=== PATIENT | female | born 1945 | race Hispanic/Latino ===

== ENCOUNTER 2016-09-09 22:20 | Inpatient (IN) | payer MEDICARE, OTHER ==
[2016-09-09 22:30] VITALS: BMI 27.4
[2016-09-09] MEDS ORDERED: Sodium Chloride 0.9% 1,000 ML IV STA (22:48)
[2016-09-09 23:14] LABS: ADD MANUAL DIFF? NO
[2016-09-09 23:21] LABS: BASO # 0.02 K/mm3 (0.0-2.0); BASO % 0.1 % (0.0-3.0); EOS % 0.2 % (1.5-5.0); GRAN # 13.25 (1.4-6.5); GRAN % 81.5 % (50.0-68.0); HEMATOCRIT 34.2 % (36.0-48.0); LYMPH # 1.6 (1.2-3.4); LYMPH % 9.5 % (22.0-35.0); MEAN CELL VOLUME 98.8 fL (80.0-105.0); MEAN CORPUSCULAR HEMOGLOBIN 31.8 pg (25.0-35.0); MEAN CORPUSCULAR HGB CONC 32.2 g/dl (31.0-37.0); MEAN PLATELET VOLUME 9.4 fl (7.0-11.0); MONO # 1.4 (0.1-0.6); MONO % 8.7 % (1.0-6.0); PLATELET COUNT 447 10^3/uL (120.0-450.0); RED CELL DISTRIBUTION WIDTH 15.7 % (11.5-14.5); WHITE BLOOD COUNT 16.3 10^3/ul (4.5-11.0)
[2016-09-09 23:30] LABS: ALB/GLOB RATIO 0.7 (1.1-1.8); ALKALINE PHOSPHATASE 159 U/L (38-133); ALT/SGPT 11 U/L (7-56); AST/SGOT 33 U/L (15-39); BILIRUBIN,TOTAL 0.8 mg/dL (0.2-1.3); BLOOD UREA NITROGEN 17 mg/dL (7-21); CALCIUM 9.6 mg/dL (8.4-10.5); CARBON DIOXIDE 35 mmol/L (21-33); CHLORIDE 88 mmol/L (98-107); GFR AFRICAN-AMERICAN > 60; GLUCOSE,RANDOM 290 mg/dL (70-110); INR 1.12 (0.93-1.08); LIPASE 112 U/L (23-300); PARTIAL THROMBOPLASTIN TIME 28.7 Seconds (23.7-30.8); POTASSIUM 4.1 mmol/L (3.6-5.0); SODIUM 132 mmol/L (132-148); TOTAL PROTEIN 8.3 g/dL (5.8-8.3)
[2016-09-10] MEDS ORDERED: Piperacill/Tazo 4.5gm in NS 100 ML IVPB STA (00:33)
--- NOTE | 2016-09-10 00:37 | ED PDOC ---
Arrival/HPI - General Chief Complaint: GI Problem Time Seen by Provider: 09/09/16 22:33 - History of Present Illness Narrative History of Present Illness (Text): 09/10/16 00:34 60-year-old female with a history of pancreatitis, presents the emergency department with one and a half weeks of constipation. States passing very little stool and gas, but has not had a normal bowel movement. Patient states that she chronically takes opiates for her pain. Patient states that she has taken magnesium citrate with no symptom resolution. Now presents with abdominal distention, and nausea. Denies fevers or chills, states she had some vomiting as well. No other complaints. Past Medical History - Provider Review Nursing Documentation Reviewed: Yes - Infectious Disease Hx of Infectious Diseases: None - Tetanus Immunization Tetanus Immunization: Unknown - Cardiac Hx Cardiac Disorders: No - Pulmonary Hx Respiratory Disorders: Yes Hx Chronic Obstructive Pulmonary Disease (COPD): Yes Hx Pulmonary Embolism: Yes - Neurological Hx Neurological Disorder: No - HEENT Hx Cataracts: Yes (2012) - Renal Hx Renal Disorder: No - Endocrine/Metabolic Hx Diabetes Mellitus Type 2: Yes - Hematological/Oncological Hx Cancer: Yes (Pancreatic CA) - Integumentary Hx Dermatological Disorder: No - Musculoskeletal/Rheumatological Hx Musculoskeletal Disorders: No Hx Falls: No - Gastrointestinal Hx Constipation: Yes - Genitourinary/Gynecological Hx Genitourinary Disorders: No - Psychiatric Hx Psychophysiologic Disorder: Yes Hx Anxiety: Yes Hx Substance Use: No - Surgical History Hx Cataract Extraction: Yes (2 YRS AGO) - Anesthesia Hx Anesthesia: Yes Hx Anesthesia Reactions: No Hx Malignant Hyperthermia: No - Suicidal Assessment Feels Threatened In Home Enviroment: No Family/Social History Family/Social History: Unknown Family HX Smoking Status: Heavy Smoker > 10 Cigarettes Daily Hx Alcohol Use: No Hx Substance Use: No Allergies/Home Meds Allergies/Adverse Reactions: Allergies No Known Allergies Allergy (Verified 06/04/16 16:50) Home Medications: Home Meds Medication Instructions Recorded Confirmed Metformin HCl 1,000 tab PO BID 05/26/15 06/05/16 Physical Exam - Physical Exam Narrative Physical Exam (Text): - Review of Systems Constitutional: Normal. absent: Fatigue, Weight Change, Fevers Eyes: Normal ENT: denies sore throat, denies tristhmus Respiratory: Normal. absent: SOB, Cough, Sputum Cardiovascular: absent: Chest Pain, Palpitations, Syncope Gastrointestinal: Nausea, vomiting, constipation. No diarrhea. Genitourinary: Normal. absent: Dysuria, Frequency, Hematuria, vaginal bleeding Musculoskeletal: Normal. absent: Arthralgias, Back Pain, Neck Pain Skin: no rashes, no erythema Neurological: absent: Focal Weakness Endocrine: Normal Hemo/Lymphatic: Normal Psychiatric: No suicidal or homicidal ideations Physical exam Patient appears age appropriate in no distress, speaking full sentences without difficulty - Systems Exam Head: Present: Atraumatic, Normocephalic Pupils: Present: PERRL Extroacular Muscles: Present: EOMI Conjunctiva: Present: Normal Mouth: Present: Moist Mucous Membranes Neck: Present: Normal Range of Motion. No: MIDLINE TENDERNESS, Paraspinal Tenderness Respiratory/Chest: Present: Clear to Auscultation, Good Air Exchange. No: Respiratory Distress, Accessory Muscle Use, Tachypneic Cardiovascular: Present: Regular Rate and Rhythm, Normal S1, S2, Peripheal Pulses Present. No: Murmurs Abdomen: Present: Normal Bowel Sounds. No: Tenderness, Distention, Peritoneal Signs, Rebound, Guarding Back: Present: Normal Inspection. No: Midline Tenderness, Paraspinal Tenderness Upper Extremity: Present: Normal Inspection. No: Cyanosis, Edema Lower Extremity: Present: Normal Inspection. No: Edema Neurological: Present: GCS=15, Speech Normal, cranial nerves II through XII fully intact with no cerebellar abnormality, neurosensory fully intact. No focal neurological deficits. Skin: Present: Warm, Dry, Normal Color. No: Rashes Lymphatic: Present: OX3, NI, NC Psychiatric: Present: Alert, Oriented x 3, Normal Insight, Normal Concentration Vital Signs Reviewed: Yes Vital Signs Temp Pulse Resp BP Pulse Ox 09/10/16 00:18 98 H 21 128/80 99 09/09/16 23:09 98.5 F 108 H 18 124/78 96 Temperature: Afebrile Blood Pressure: Normal Pulse: Tachycardic Respiratory Rate: Normal Appearance: Positive for: Non-Toxic, Comfortable Pain Distress: None Mental Status: Positive for: Alert and Oriented X 3 Medical Decision Making ED Course and Treatment: 09/10/16 00:37 70-year-old female on opiates for chronic pain, history of pancreatic cancer, presents with constipation. No acute findings on physical examination Patient has leukocytosis and tachycardia, blood cultures and antibiotics also ordered CAT scan, labs pending. Differential diagnosis includes but not limited to: Constipation versus obstipation versus colitis versus ileus 09/10/16 01:19 CT abdomen pelvis as read by [facility] IMPRESSION: Partially imaged left thorax loculated empyema with an air-fluid level and concern for adjacent lung abscess as above. Redemonstration of innumerable pulmonary nodules which are favored to be larger than approximately 3 months ago and in keeping with metastatic disease as the most likely cause. Redemonstration of dilatation of the main pancreatic duct and an apparent pancreatic head mass. Redemonstration of pneumobilia. The large intestine has partially liquid content which could reflect a diarrheal process, constipation could be considered as a contributing factor to discomfort. The absence of intravenous contrast greatly limits evaluation of the parenchymal organs. The absence of oral contrast limits evaluation of the gastrointestinal tract. 09/10/16 01:[address] Gamboa, asked to call Dr. Katherine Murphy, agrees with admission to his service pt and family aware of and agree with plan pt in no distress at this time, tolerating PO without difficulty, hemodynamically stable 09/10/16 01:37 family asked to admin 80mg lovenox to pt at 8am order placed - Lab Interpretations Lab Results: 09/09/16 23:13 09/09/16 23:13 Lab Results 09/09/16 23:13: WBC 16.3 H D, RBC 3.46 L, Hgb 11.0 L, Hct 34.2 L, MCV 98.8, MCH 31.8, MCHC 32.2, RDW 15.7 H, Plt Count 447, MPV 9.4, Gran % 81.5 H, Lymph % ( Auto) 9.5 L, [place] % (Auto) 8.7 H, Eos % (Auto) 0.2 L, Baso % (Auto) 0.1, Gran # 13.25 H, Lymph # 1.6, [place] # 1.4 H, Eos # 0.0, Baso # 0.02, PT 12.1 H, INR 1.12 H, APTT 28.7, Sodium 132, Potassium 4.1, Chloride 88 L, Carbon Dioxide 35 H, Anion Gap 13, BUN 17, Creatinine 0.5, Est GFR ( Amer) > 60, Est GFR (Non- Af Amer) > 60, Random Glucose 290 H, Calcium 9.6, Total Bilirubin 0.8, AST 33, ALT 11, Alkaline Phosphatase 159 H, Total Protein 8.3, Albumin 3.5, Globulin 4.7 , Albumin/Globulin Ratio 0.7 L, Lipase 112 - RAD Interpretation Narrative RAD Interpretations (Text): EXAM: CT Abdomen and Pelvis Without Intravenous Contrast. FINDINGS: Lower thorax: History -There is a comparison to the partially included abdomen on CT of the chest performed June 10, 2016. There is additional history provided on ultrasound dated 2014 of pancreatic adenocarcinoma. Previous CT of the chest and abdomen June 10, 2016 noted innumerable bilateral cavitary pulmonary nodules, pneumobilia, suspicion for mass at the pancreatic head. There is a loculated empyema with an air-fluid level in the left lower thorax, this is not completely imaged on this study. The included portion is approximately 4 cm in anteroposterior dimension, approximately 8.4 cm transversely, greater than 9 cm cephalocaudal, noting that this is favored to be loculated as suggested series 2 image 19. Not possible to exclude a small abscess in the adjacent lung. In addition, there is again note of the innumerable lung nodules in the included portions of the lung bases, these are favored to be larger, for example at the right lung base series 2 image 37 a 19.5 mm nodule measured 16.5 mm in May 2016. There is not any definite nodule which has resolved completely or is smaller, and the findings again are noted to be most likely on the basis of metastatic disease rather than infection. Distended stomach. Air in the esophagus in keeping with reflux. Liver: Pneumobilia, as previously described. Gallbladder and bile ducts: Pneumobilia, as previously described. Cholecystectomy. Pancreas: Marked dilatation of the main pancreatic duct, with a heterogeneous soft tissue attenuation finding in the pancreatic head poorly from the adjacent duodenum and difficult to measure on this noncontrast CT. Spleen: Unremarkable. No splenomegaly. Adrenals: Redemonstration of thickening of the left adrenal gland. Kidneys and ureters: No hydronephrosis. No definite ureteral stones are seen noting that punctate stones or noncalcified stones may not be well seen on CT. Stomach and bowel: Increased fecal content in the colon, correlate for constipation as a contributing factor for symptoms. Possible fluid content in the proximal colon. No findings to suggest acute small bowel obstruction. Appendix: No findings to suggest acute appendicitis. PELVIS: Bladder: Bladder is partly collapsed limiting evaluation. No stones. Reproductive: Unremarkable as visualized. ABDOMEN and PELVIS: Intraperitoneal space: The abdomen shows no free air. No significant fluid collection. Bones/joints: Bony structures degenerative changes of the hips, degenerative spine changes, no acute fractures. Please note limited sensitivity for bony metastatic disease. No dislocation. Soft tissues: Unremarkable. Vasculature: Atherosclerotic calcification. Incidentally noted retroaortic left renal vein. No abdominal aortic aneurysm. Lymph nodes: Lymph nodes. Prominent retrocrural nodes series 2 image 48, multiple peripancreatic nodes which do not definitely meet size criteria for pathologic enlargement. Prominent aortocaval nodes IMPRESSION: Partially imaged left thorax loculated empyema with an air-fluid level and concern for adjacent lung abscess as above. Redemonstration of innumerable pulmonary nodules which are favored to be larger than approximately 3 months ago and in keeping with metastatic disease as the most likely cause. Redemonstration of dilatation of the main pancreatic duct and an apparent pancreatic head mass. Redemonstration of pneumobilia. The large intestine has partially liquid content which could reflect a diarrheal process, constipation could be considered as a contributing factor to discomfort. The absence of intravenous contrast greatly limits evaluation of the parenchymal organs. The absence of oral contrast limits evaluation of the gastrointestinal tract. Radiology Orders: 09/09/16 22:48 ABD & PELVIS W/O PO OR IV CONT [CT] Stat Regional Sales Director: Radiologist - Medication Orders Current Medication Orders: Discontinued Medications Sodium Chloride (Sodium Chloride 0.9%) 1,000 mls @ 1,000 mls/hr IV .Q1H STA Stop: 09/09/16 23:47 Last Admin: 09/09/16 23:17 Dose: 1,000 MLS/HR eMAR Start Stop Document 09/09/16 23:17 LYDIA (Rec: 09/09/16 23:17 RJR [id number]) Intravenous Solution Start Date 09/09/16 Start Time 23:17 End Date 09/10/16 End time 00:17 Total Infusion Time 60 Piperacillin Sod/Tazobactam Sod (Zosyn 4.5 Gm In Ns 100ml) 100 mls @ 200 mls/ hr IVPB STAT STA PRN Reason: Protocol Stop: 09/10/16 01:02 Lorazepam (Ativan) 2 mg IVP ONCE ONE Stop: 09/09/16 23:54 Last Admin: 09/10/16 00:14 Dose: 2 MG Behavioural Document 09/10/16 00:14 Ghada (Rec: 09/10/16 00:15 [facility] [id number]) Maintenance Maintenance Dose No Nonmedicinal Nonmedicinal Interventions See nurse's notes Behavior Behavior for Medication: Anxiety IVP Administration Document 09/10/16 00:14 Ghada (Rec: 09/10/16 00:15 [facility] [id number]) Charges for Administration # of IVP Administrations 1 Disposition/Present on Arrival - Present on Arrival Any Indicators Present on Arrival: No History of DVT/PE: Yes History of Uncontrolled Diabetes: No Urinary Catheter: No History of Decub. Ulcer: No History Surgical Site Infection Following: None - Disposition Have Diagnosis and Disposition been Completed?: Yes Diagnosis: Empyema Disposition: HOSPITALIZED Disposition Time: 01:37 Patient Plan: Admission Patient Problems: Current Active Problems Problem Status Diagnosed Empyema Acute Condition: FAIR
--- NOTE | 2016-09-10 01:14 | CT ---
EXAM: CT Abdomen and Pelvis Without Intravenous Contrast. CLINICAL HISTORY: 70 years old, female; Signs and symptoms; Constipation TECHNIQUE: Axial computed tomography images of the abdomen and pelvis without intravenous contrast. This CT exam was performed using one or more of the following dose reduction techniques: automated exposure control, adjustment of the mA and/or kV according to patient size, and/or use of iterative reconstruction technique. Coronal and sagittal reformatted images were created and reviewed. EXAM DATE/TIME: Exam ordered 09/09/2016 10:48 PM COMPARISON: CT - CHEST, ABDOMEN W/O CONTRAST 06/10/2016 8:15:16 PM FINDINGS: Lower thorax: History -There is a comparison to the partially included abdomen on CT of the chest performed June 10, 2016. There is additional history provided on ultrasound dated 2014 of pancreatic adenocarcinoma. Previous CT of the chest and abdomen June 10, 2016 noted innumerable bilateral cavitary pulmonary nodules, pneumobilia, suspicion for mass at the pancreatic head. There is a loculated empyema with an air-fluid level in the left lower thorax, this is not completely imaged on this study. The included portion is approximately 4 cm in anteroposterior dimension, approximately 8.4 cm transversely, greater than 9 cm cephalocaudal, noting that this is favored to be loculated as suggested series 2 image 19. Not possible to exclude a small abscess in the adjacent lung. In addition, there is again note of the innumerable lung nodules in the included portions of the lung bases, these are favored to be larger, for example at the right lung base series 2 image 37 a 19.5 mm nodule measured 16.5 mm in May 2016. There is not any definite nodule which has resolved completely or is smaller, and the findings again are noted to be most likely on the basis of metastatic disease rather than infection. Distended stomach. Air in the esophagus in keeping with reflux. ABDOMEN: Liver: Pneumobilia, as previously described. Gallbladder and bile ducts: Pneumobilia, as previously described. Cholecystectomy. Pancreas: Marked dilatation of the main pancreatic duct, with a heterogeneous soft tissue attenuation finding in the pancreatic head poorly from the adjacent duodenum and difficult to measure on this noncontrast CT. Spleen: Unremarkable. No splenomegaly. Adrenals: Redemonstration of thickening of the left adrenal gland. Kidneys and ureters: No hydronephrosis. No definite ureteral stones are seen noting that punctate stones or noncalcified stones may not be well seen on CT. Stomach and bowel: Increased fecal content in the colon, correlate for constipation as a contributing factor for symptoms. Possible fluid content in the proximal colon. No findings to suggest acute small bowel obstruction. Appendix: No findings to suggest acute appendicitis. PELVIS: Bladder: Bladder is partly collapsed limiting evaluation. No stones. Reproductive: Unremarkable as visualized. ABDOMEN and PELVIS: Intraperitoneal space: The abdomen shows no free air. No significant fluid collection. Bones/joints: Bony structures degenerative changes of the hips, degenerative spine changes, no acute fractures. Please note limited sensitivity for bony metastatic disease. No dislocation. Soft tissues: Unremarkable. Vasculature: Atherosclerotic calcification. Incidentally noted retroaortic left renal vein. No abdominal aortic aneurysm. Lymph nodes: Lymph nodes. Prominent retrocrural nodes series 2 image 48, multiple peripancreatic nodes which do not definitely meet size criteria for pathologic enlargement. Prominent aortocaval nodes IMPRESSION: Partially imaged left thorax loculated empyema with an air-fluid level and concern for adjacent lung abscess as above. Redemonstration of innumerable pulmonary nodules which are favored to be larger than approximately 3 months ago and in keeping with metastatic disease as the most likely cause. Redemonstration of dilatation of the main pancreatic duct and an apparent pancreatic head mass. Redemonstration of pneumobilia. The large intestine has partially liquid content which could reflect a diarrheal process, constipation could be considered as a contributing factor to discomfort. The absence of intravenous contrast greatly limits evaluation of the parenchymal organs. The absence of oral contrast limits evaluation of the gastrointestinal tract.
[2016-09-10] MEDS ORDERED: Oxycodone/Acetaminophen 5/325 mg Tab PO PRN (01:38)
[2016-09-10 02:53] VITALS: O2SAT 98
[2016-09-10 06:20] VITALS: PULSE 99; RESP 20; TEMP 98.2
[2016-09-10] MEDS ORDERED: Enoxaparin 80 mg Syringe SC SCH (08:00)
[2016-09-10] MEDS ORDERED: Levothyroxine 25 MCG TAB PO SCH (08:30)
--- NOTE | 2016-09-10 08:36 | CP.PCM.HP ---
History of Present Illness - History of Present Illness History of Present Illness: 70 year old female with history of pancreatic cancer, left thorax loculated empyema and diabetes mellitus presented to the ER last night with constipation for 1 and 1/2 weeks. Patient is extremely weak and tired. According to the son, she has had multiple medicines for constipation and an enema was tried as well with no relief. She is on opiods for the pancreatic cancer pain. While in the ER, patient was found to have leukocytosis and tachycardia. Present on Admission - Present on Admission Any Indicators Present on Admission: No Review of Systems - Cardiovascular Cardiovascular: As Per HPI - Respiratory Respiratory: Dyspnea - Gastrointestinal Gastrointestinal: As Per HPI Past Patient History - Infectious Disease Hx of Infectious Diseases: None - Tetanus Immunizations Tetanus Immunization: Unknown - Past Social History Smoking Status: Heavy Smoker > 10 Cigarettes Daily - CARDIAC Hx Cardiac Disorders: No - PULMONARY Hx Respiratory Disorders: Yes Hx Chronic Obstructive Pulmonary Disease (COPD): Yes - NEUROLOGICAL Hx Neurological Disorder: No - HEENT Hx Cataracts: Yes (2012) - RENAL Hx Chronic Kidney Disease: No - ENDOCRINE/METABOLIC Hx Diabetes Mellitus Type 2: Yes - HEMATOLOGICAL/ONCOLOGICAL Hx Cancer: Yes (Pancreatic CA) - INTEGUMENTARY Hx Dermatological Problems: No - MUSCULOSKELETAL/RHEUMATOLOGICAL Hx Musculoskeletal Disorders: No Hx Falls: No - GASTROINTESTINAL Hx Gastrointestinal Disorders: Yes (constipation) - GENITOURINARY/GYNECOLOGICAL Hx Genitourinary Disorders: No - PSYCHIATRIC Hx Psychophysiologic Disorder: Yes Hx Anxiety: Yes Hx Substance Use: No - SURGICAL HISTORY Hx Surgeries: Yes Hx Cholecystectomy: Yes Other/Comment: biliary stent removed and gallbladder, 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, right cw pac - ANESTHESIA Hx Anesthesia: Yes Hx Anesthesia Reactions: No Hx Malignant Hyperthermia: No Meds Allergies/Adverse Reactions: Allergies Allergy/AdvReac Type Severity Reaction Status Date / Time No Known Allergies Allergy Verified 06/04/16 16:50 Physical Exam - Head Exam Head Exam: ATRAUMATIC, NORMOCEPHALIC - Respiratory Exam Respiratory Exam: Decreased Breath Sounds, NORMAL BREATHING PATTERN - Cardiovascular Exam Cardiovascular Exam: +S1, +S2 - GI/Abdominal Exam GI & Abdominal Exam: Soft Results - Vital Signs Recent Vital Signs: Last Vital Signs Temp 98.2 F 09/10/16 05:43 Pulse 99 H 09/10/16 05:43 Resp 20 09/10/16 05:43 BP 122/79 09/10/16 05:43 Pulse Ox 98 09/10/16 05:43 - Labs Result Diagrams: 09/09/16 23:13 09/09/16 23:13 Assessment & Plan - Assessment and Plan (Free Text) Assessment: Sepsis Pancreatic cancer Constipation H/O left thorax loculated empyema Plan: Patient is complaining of constipation. CT abdomen and pelvis shows stool present in the colon. Will order lactulose. Blood and urine cultures were sent for sepsis. Will consult infectious disease Since patient had CT scan with contrast, will hold metformin and start accuchecks with SS coverage. diabetic diet continue Percocet for pain, respiratory treatments
[2016-09-10] MEDS ORDERED: Vancomycin 1gm in NS 250ml 250 ML IVPB SCH (09:30)
[2016-09-10] MEDS ORDERED: Meropenem 1 GM in Sodium Chloride 0.9% 100 ML IVPB SCH (09:30)
[2016-09-10 09:49] VITALS: BP 110/75
[2016-09-10] MEDS ORDERED: Meropenem 1g/NS 100mL IVPB 100 ML IVPB SCH (11:32)
[2016-09-10] MEDS: Insulin Reg-LOW-Coverage SC SCH ×2 (12:15→16:48)
[2016-09-10] MEDS ORDERED: Albuterol-Ipratrop 3 mg / 0.5 (3 ml) UD IH SCH (14:00)
--- NOTE | 2016-09-10 14:24 | CP.PCM.CON ---
History of Present Illness - History of Present Illness History of Present Illness: 70 year old female with PMH of atypical hospital-acquired pneumonia, pancreatic cancer with probable lung metastases S/P port-a-Cath placement, HTN, anxiety disorder, hypothyroidism, COPD, DM was recently diagnosed with a loculated pleural effusion on the left side, which was thought to be empyema. It was drained in 2016 but the patient does not recall if she was placed on antibiotics. She was apparently doing well after that until about 2 weeks ago when she started feeling more fatigued than usual, generalized weakness and poor appetite. She was also having dry cough, dyspnea on exertion, vague abdominal discomfort. She denies fever or chills, no nausea or vomiting, no diarrhea, no chest pain, no sore throat, no rhinorrhea, no headache or dizziness , no dysuria. In the ED, she was found to have leukocytosis as well and Infectious Diseases consult is requested to further evaluate and manage. Review of Systems - Review of Systems All systems: reviewed and no additional remarkable complaints except (as per hPI ) Past Patient History - Infectious Disease Hx of Infectious Diseases: None - Tetanus Immunizations Tetanus Immunization: Unknown - Past Medical History & Family History Past Medical History?: Yes Past Family History: Reviewed and not pertinent - Past Social History Smoking Status: Heavy Smoker > 10 Cigarettes Daily Alcohol: None Drugs: Denies - CARDIAC Hx Cardiac Disorders: No - PULMONARY Hx Respiratory Disorders: Yes Hx Chronic Obstructive Pulmonary Disease (COPD): Yes - NEUROLOGICAL Hx Neurological Disorder: No - HEENT Hx Cataracts: Yes (2012) - RENAL Hx Chronic Kidney Disease: No - ENDOCRINE/METABOLIC Hx Diabetes Mellitus Type 2: Yes - HEMATOLOGICAL/ONCOLOGICAL Hx Cancer: Yes (Pancreatic CA) - INTEGUMENTARY Hx Dermatological Problems: No - MUSCULOSKELETAL/RHEUMATOLOGICAL Hx Musculoskeletal Disorders: No Hx Falls: No - GASTROINTESTINAL Hx Gastrointestinal Disorders: Yes (constipation) - GENITOURINARY/GYNECOLOGICAL Hx Genitourinary Disorders: No - PSYCHIATRIC Hx Psychophysiologic Disorder: Yes Hx Anxiety: Yes Hx Substance Use: No - SURGICAL HISTORY Hx Surgeries: Yes Hx Cholecystectomy: Yes Other/Comment: biliary stent removed and gallbladder, 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, right cw pac - ANESTHESIA Hx Anesthesia: Yes Hx Anesthesia Reactions: No Hx Malignant Hyperthermia: No Meds Allergies/Adverse Reactions: Allergies Allergy/AdvReac Type Severity Reaction Status Date / Time No Known Allergies Allergy Verified 06/04/16 16:50 - Medications Medications: Current Medications Albuterol/Ipratropium (Duoneb 3 Mg/0.5 Mg (3 Ml) Ud) 3 ml IH [id number] [facility] Diltiazem HCl (Cardizem) 30 mg PO Q8H [facility] Enoxaparin Sodium (Lovenox) 80 mg SC 0800 [facility] PRN Reason: Protocol Last Admin: 09/10/16 08:21 Dose: 80 mg Insulin Human Regular (Humulin R Low) 0 units SC ACHS [facility] PRN Reason: Protocol Lactulose (Enulose) 20 gm PO HS [facility] Levothyroxine Sodium (Synthroid) 25 mcg PO ACB [facility] Loratadine (Claritin) 10 mg PO DAILY [facility] Ondansetron HCl (Zofran Inj) 4 mg IVP Q4H PRN PRN Reason: Nausea/Vomiting Oxycodone/Acetaminophen (Percocet 5/325 Mg Tab) 1 tab PO Q4H PRN PRN Reason: Pain, moderate (4-7) Stop: 09/13/16 01:39 Pantoprazole Sodium (Protonix Ec Tab) 40 mg PO 0630 [facility] Prednisone (Prednisone Tab) 10 mg PO DAILY [facility] Physical Exam - Constitutional Appears: Non-toxic, No Acute Distress - Head Exam Head Exam: NORMAL INSPECTION - ENT Exam ENT Exam: Mucous Membranes Moist - Neck Exam Neck exam: Negative for: Lymphadenopathy, Meningismus - Respiratory Exam Respiratory Exam: Decreased Breath Sounds (especially at the bases) - Cardiovascular Exam Cardiovascular Exam: +S1, +S2 - GI/Abdominal Exam GI & Abdominal Exam: Soft. absent: Tenderness Results - Vital Signs Recent Vital Signs: Last Vital Signs Temp 98.2 F 09/10/16 05:43 Pulse 99 H 09/10/16 05:43 Resp 20 09/10/16 05:43 BP 122/79 09/10/16 05:43 Pulse Ox 98 09/10/16 05:43 - Labs Result Diagrams: 09/09/16 23:13 09/09/16 23:13 Assessment & Plan - Assessment and Plan (Free Text) Plan: Assessment Systemic Inflammatory Response Syndrome, consider sepsis secondary to left- sided loculated pleural effusion, R/O empyema history of atypical hospital-acquired pneumonia pancreatic cancer with probable lung metastases S/P port-a-Cath placement HTN anxiety disorder hypothyroidism COPD DM Plan Started patient on Vancomycin and Merrem pending blood cx; recommend at least thoracentesis for the loculated effusion, to be sent for cultures, fungal cx, ADA; should have surgical evaluation for possible VATS Will follow clinically
--- NOTE | 2016-09-10 18:09 | CP.PCM.PN ---
Subjective - Date & Time of Evaluation Date of Evaluation: 09/10/16 Time of Evaluation: 18:02 - Subjective Subjective: 70 yrs old female with hx of pancreatic ca, sepsis constipation empyema. wants to sign AMA. PT is on antibiotics and evaluation and w/u is in progress.pt does not want to tell where she is going with the family.pt and family also spoke to dr caballero and social service and nursing superwiser Objective - Vital Signs/Intake and Output Vital Signs (last 24 hours): Temp Pulse Resp BP Pulse Ox 98.2 F 99 H 20 110/75 98 09/10/16 05:43 09/10/16 05:43 09/10/16 05:43 09/10/16 09:29 09/10/16 05:43 Intake and Output: 09/10/16 09/10/16 06:59 18:59 Intake Total 360 Balance 360 - Medications Medications: Current Medications Albuterol/Ipratropium (Duoneb 3 Mg/0.5 Mg (3 Ml) Ud) 3 ml IH [id number] [facility] Last Admin: 09/10/16 13:28 Dose: 3 ml Diltiazem HCl (Cardizem) 30 mg PO Q8H [facility] Last Admin: 09/10/16 16:48 Dose: Not Given Enoxaparin Sodium (Lovenox) 80 mg SC 0800 [facility] PRN Reason: Protocol Last Admin: 09/10/16 08:21 Dose: 80 mg Vancomycin HCl (Vancomycin 1gm) 250 mls @ 167 mls/hr IVPB Q12H [facility] PRN Reason: Protocol Last Admin: 09/10/16 09:28 Dose: 167 mls/hr Meropenem 1g/NS 100mL IVPB (Meropenem 1g/Ns 100ml Ivpb) 100 mls @ 100 mls/hr IVPB Q8 [facility] PRN Reason: Protocol Stop: 09/17/16 09:31 Last Admin: 09/10/16 13:32 Dose: Not Given Insulin Human Regular (Humulin R Low) 0 units SC ACHS [facility] PRN Reason: Protocol Last Admin: 09/10/16 16:48 Dose: Not Given Lactulose (Enulose) 20 gm PO HS [facility] Levothyroxine Sodium (Synthroid) 25 mcg PO ACB [facility] Last Admin: 09/10/16 09:28 Dose: 25 mcg Loratadine (Claritin) 10 mg PO DAILY [facility] Last Admin: 09/10/16 09:28 Dose: 10 mg Ondansetron HCl (Zofran Inj) 4 mg IVP Q4H PRN PRN Reason: Nausea/Vomiting Oxycodone/Acetaminophen (Percocet 5/325 Mg Tab) 1 tab PO Q4H PRN PRN Reason: Pain, moderate (4-7) Stop: 09/13/16 01:39 Pantoprazole Sodium (Protonix Ec Tab) 40 mg PO 0630 [facility] Prednisone (Prednisone Tab) 10 mg PO DAILY [facility] Last Admin: 09/10/16 09:28 Dose: 10 mg - Labs Labs: PT 12.1 Seconds (9.9-11.8) H 09/09/16 23:13 INR 1.12 (0.93-1.08) H 09/09/16 23:13 APTT 28.7 Seconds (23.7-30.8) 09/09/16 23:13 - Constitutional Appears: No Acute Distress - Eye Exam Eye Exam: Normal appearance Pupil Exam: PERRL - ENT Exam ENT Exam: Mucous Membranes Moist - Neck Exam Neck Exam: Normal Inspection - Respiratory Exam Respiratory Exam: NORMAL BREATHING PATTERN - Rectal Exam Rectal Exam: Deferred - Neurological Exam Neurological Exam: Alert, Awake, Oriented x3 - Psychiatric Exam Psychiatric exam: Normal Affect - Skin Skin Exam: Dry, Warm Assessment and Plan - Assessment and Plan (Free Text) Assessment: AMA. Pancreatic cancer. sepsis. empyema lung. Plan: risk of continued and worse infection with hypotension explained to pt.
[2016-09-11] MEDS ORDERED: Pantoprazole 40 mg EC Tab PO SCH (06:30)
== END 2016-09-10 19:01 | disposition left against medical advice (07) | DRG 871 ==
LOC: ED 22:20 → ERH 09-10 01:38 → 5RNO 09-10 03:34
PROVIDERS: ADMIT Internal Medicine; ATTEND Internal Medicine
DX: A41.9 Sepsis, unspecified organism (principal); J86.9 Pyothorax without fistula; C25.9 Malignant neoplasm of pancreas, unspecified; J44.9 Chronic obstructive pulmonary disease, unspecified; I10 Essential (primary) hypertension; K59.00 Constipation, unspecified; G89.3 Neoplasm related pain (acute) (chronic); E11.9 Type 2 diabetes mellitus without complications; R14.0 Abdominal distension (gaseous); F41.9 Anxiety disorder, unspecified; E03.9 Hypothyroidism, unspecified